=== PATIENT | male | born 1960 | race Caucasian/White ===

== ENCOUNTER 2023-09-30 09:53 | Emergency (ER) | payer MEDICARE ==
[~2023-09-30] VITALS: Ht 172.7 cm; Wt 83.9 kg
[2023-09-30 10:06] VITALS: BP 150/83
[2023-09-30] MEDS ORDERED: CEPH500 PO (11:03)
[2023-09-30] MEDS ORDERED: Bactrim Ds Tab1 EACH PO (11:03)
== END 2023-09-30 11:51 | disposition home or self-care (01) ==
LOC: ER 09:53
DX: L02.412 Cutaneous abscess of left axilla (principal)
CPT/HCPCS: 10060; 99282-25

== ENCOUNTER 2023-11-05 09:01 | Inpatient (IN) | payer MEDICARE ==
[~2023-11-05 09:01] MED LIST: Bactrim Ds Tab1 EACH PO; CEPH500 PO
[2023-11-05] MEDS ORDERED: GABA100 PO (10:05)
[2023-11-05] MEDS ORDERED: DIVALPROEX SOD500 M2 PO (10:05)
[2023-11-05] MEDS ORDERED: NAPROXEN500 MG PO (10:06)
[2023-11-05] MEDS ORDERED: QUET300 PO (10:06)
[2023-11-05 10:38] LABS: BASOPHILS ABSOLUTE AUTO 0.02 K/mm3 (0.00-0.23); BASOPHILS PERCENT AUTO 0 % (0-2); EOSINOPHILS ABSOLUTE AUTO 0.03 K/mm3 (0.00-0.68); EOSINOPHILS PERCENT AUTO 1 % (0-6); Hematocrit 18.5 % (37.0-53.0); IMMATURE GRAN ABSOLUTE AUTO 0.03 K/mm3 (0.00-0.10); IMMATURE GRAN PERCENT AUTO 1 % (0-1); LYMPHOCYTES ABSOLUTE AUTO 0.93 K/mm3 (0.84-5.20); LYMPHOCYTES PERCENT AUTO 18 % (21-46); MONOCYTES ABSOLUTE AUTO 0.44 K/mm3 (0.16-1.47); MONOCYTES PERCENT AUTO 9 % (4-13); Mean Corpuscular HGB 22.8 pg (26.0-34.0); Mean Corpuscular HGB Conc 28.1 g/dL (31.5-36.5); Mean Corpuscular Volume 81 fL (80-100); Mean Platelet Volume 9.5 fL (9.1-12.4); NEUTROPHILS ABSOLUTE AUTO 3.67 K/mm3 (1.96-9.15); NEUTROPHILS PERCENT AUTO 72 % (41-73); NRBC ABSOLUTE 0.02 K/mm3 (0.00-0.02); NRBC Auto 0.4 /100 WBC (0.0-0.2); Platelet Count 292 K/mm3 (150-400); RDW Coefficient Variation 16.3 % (11.7-14.2); RDW Standard Deviation 48.8 fL (35.1-46.3); Red Blood Cell Count 2.28 M/mm3 (4.30-5.90); White Blood Cell Count 5.12 K/mm3 (4.00-11.30)
[2023-11-05 10:50] LABS: Hemoglobin 5.2 g/dL (13.5-17.5)
[2023-11-05 11:03] LABS: Alanine Aminotransfer (ALT/SGP 21 U/L (12-78); Albumin, Blood 3.2 g/dL (3.4-5.0); Albumin/Globulin Ratio 1.1 (0.8-1.8); Alk Phos 51 U/L (50-136); Anion Gap 5 mmol/L (6-16); Aspartate Aminotrans (AST/SGOT 11 U/L (12-37); Bilirubin, Total 0.2 mg/dL (0.1-1.0); Blood Urea Nitrogen 16 mg/dL (8-24); Bun/Creatinine Ratio 16.6 (12.0-20.0); CO2, Blood 23 mmol/L (21-32); Calcium, Blood 8.3 mg/dL (8.5-10.1); Chloride, Blood 117 mmol/L (98-108); Creatinine, Blood 0.96 mg/dL (0.60-1.20); Globulin, Blood 2.8 g/dL (2.2-4.0); Glomerular Filtration Rate 90 (60-); Glucose, Blood 121 mg/dL (70-99); Magnesium, Blood 2.2 mg/dL (1.6-2.4); Potassium, Blood 4.5 mmol/L (3.5-5.5); Sodium, Blood 145 mmol/L (136-145); Valproic Acid 34.3 ug/mL (50.0-100.0)
[2023-11-05 15:36] LABS: IMMATURE RETIC FRACTION 20.6 % (2.3-16.0); RETIC HGB EQUIVALENT 16.1 pg (28.20-36.60); RETICULOCYTE ABSOLUTE 0.0521 M/mm3 (0.0200-0.1100); RETICULOCYTE COUNT PERCENT 2.41 % (0.50-2.50)
[2023-11-05 16:03] LABS: International Normalized Ratio 1.05
[2023-11-05 17:01] LABS: Percent Saturation 1.4 % (20.0-50.0)
[2023-11-05 18:18] VITALS: BP 135/81
[2023-11-05 18:41] VITALS: BP 127/69
--- NOTE | 2023-11-05 18:57 | NUR ---
PATIENT IS A NEW ADMIT. RECIEVING HIS SECOND UNTI OF PRBC NOW. NO C/O DIZZINESS. VSS. ON RA. WILL CONTINUE TO MONITOR
[2023-11-05 18:59] VITALS: BP 133/72
[2023-11-05 20:17] VITALS: BP 130/88
[2023-11-05 21:18] VITALS: BP 128/74
[2023-11-06] VITALS (7 sets, daily range): BP systolic 118–154; BP diastolic 72–83
[2023-11-06 05:31] LABS: BASOPHILS ABSOLUTE AUTO 0.03 K/mm3 (0.00-0.23); BASOPHILS PERCENT AUTO 1 % (0-2); EOSINOPHILS ABSOLUTE AUTO 0.13 K/mm3 (0.00-0.68); EOSINOPHILS PERCENT AUTO 3 % (0-6); Hematocrit 22.5 % (37.0-53.0); Hemoglobin 6.7 g/dL (13.5-17.5); IMMATURE GRAN ABSOLUTE AUTO 0.02 K/mm3 (0.00-0.10); IMMATURE GRAN PERCENT AUTO 0 % (0-1); LYMPHOCYTES ABSOLUTE AUTO 2.03 K/mm3 (0.84-5.20); LYMPHOCYTES PERCENT AUTO 39 % (21-46); MONOCYTES ABSOLUTE AUTO 0.48 K/mm3 (0.16-1.47); MONOCYTES PERCENT AUTO 9 % (4-13); Mean Corpuscular HGB 24.2 pg (26.0-34.0); Mean Corpuscular HGB Conc 29.8 g/dL (31.5-36.5); Mean Corpuscular Volume 81 fL (80-100); NEUTROPHILS ABSOLUTE AUTO 2.56 K/mm3 (1.96-9.15); NEUTROPHILS PERCENT AUTO 49 % (41-73); Platelet Count 269 K/mm3 (150-400); RDW Coefficient Variation 15.9 % (11.7-14.2); RDW Standard Deviation 46.8 fL (35.1-46.3); Red Blood Cell Count 2.77 M/mm3 (4.30-5.90); White Blood Cell Count 5.25 K/mm3 (4.00-11.30)
[2023-11-06 05:43] LABS: Albumin, Blood 2.7 g/dL (3.4-5.0); Bilirubin, Total 1.2 mg/dL (0.1-1.0); Bun/Creatinine Ratio 10.5 (12.0-20.0); Creatinine, Blood 1.05 mg/dL (0.60-1.20); Globulin, Blood 2.6 g/dL (2.2-4.0); Magnesium, Blood 2.2 mg/dL (1.6-2.4); Potassium, Blood 4.3 mmol/L (3.5-5.5); Total Protein, Blood 5.3 g/dL (6.4-8.2)
--- NOTE | 2023-11-06 07:13 | NUR ---
Shift Summary Pt rcvd 2nd unit of blood without any issues. This AM pt states his urine was pink. No BM this shift. Pt rcving IV Protonix, on clear liquid diet. No c/o of dizzyness, sob or nausea this shift.
[2023-11-06 13:22] LABS: BASOPHILS ABSOLUTE AUTO 0.04 K/mm3 (0.00-0.23); BASOPHILS PERCENT AUTO 1 % (0-2); EOSINOPHILS ABSOLUTE AUTO 0.08 K/mm3 (0.00-0.68); EOSINOPHILS PERCENT AUTO 2 % (0-6); Hematocrit 25.5 % (37.0-53.0); Hemoglobin 7.8 g/dL (13.5-17.5); IMMATURE GRAN ABSOLUTE AUTO 0.02 K/mm3 (0.00-0.10); IMMATURE GRAN PERCENT AUTO 0 % (0-1); LYMPHOCYTES ABSOLUTE AUTO 1.59 K/mm3 (0.84-5.20); LYMPHOCYTES PERCENT AUTO 34 % (21-46); MONOCYTES ABSOLUTE AUTO 0.38 K/mm3 (0.16-1.47); MONOCYTES PERCENT AUTO 8 % (4-13); Mean Corpuscular HGB Conc 30.6 g/dL (31.5-36.5); Mean Corpuscular Volume 82 fL (80-100); Mean Platelet Volume 9.6 fL (9.1-12.4); NEUTROPHILS ABSOLUTE AUTO 2.54 K/mm3 (1.96-9.15); NEUTROPHILS PERCENT AUTO 55 % (41-73); NRBC ABSOLUTE 0.02 K/mm3 (0.00-0.02); NRBC Auto 0.4 /100 WBC (0.0-0.2); Platelet Count 248 K/mm3 (150-400); RDW Coefficient Variation 15.9 % (11.7-14.2); RDW Standard Deviation 46.6 fL (35.1-46.3); Red Blood Cell Count 3.12 M/mm3 (4.30-5.90); White Blood Cell Count 4.65 K/mm3 (4.00-11.30)
--- NOTE | 2023-11-06 18:14 | NUR ---
PATIENT IS ALERT AND ORIENTED AND COOPERATIVE WITH CARE.1 UNIT OF PRBC WAS TRANSFUSED THIS SHIFT, INCREASING HIS HGB TO 7.8L. PLAN IS TO TRANSFER TO ANOTHER HOSPITAL WITH , DR. MACKEY IS WORKING ON THIS. WILL CONTINUE TO MONITOR
[2023-11-07 05:45] VITALS: BP 134/80
--- NOTE | 2023-11-07 07:40 | NUR ---
Shift Summary Urine was normal color this shift, pt AOX4 and independent in the room, no acute changes. Pt slept well t/o the night. No BM tonight.
[2023-11-07 07:52] VITALS: BP 117/77
[2023-11-07 15:44] VITALS: BP 141/78
--- NOTE | 2023-11-07 18:12 | NUR ---
SHIFT SUMMARY PT AOX4, INDEPENDENT IN THE ROOM. HE C/O CONSTIPATION THIS AM, THE PROVIDER CONSULTED AND STARTED HIM ON MIRALAX. HE HAD ONE MODERATE BM THIS AFTERNOON BUT STILL STATES SOME GAS PRESENT. OTHER THAN THAT, NO OTHER COMPLAINTS. HE IS COOPERATIVE AND MAKES HIS NEEDS KNOWN. WILL RECHECK HEMOGLOBIN IN THE AM TO DETERMINE POSSIBLE DISCHARGE OR NOT. CALL LIGHT WITHIN REACH, BED IN THE LOWEST POSITION. WILL REPORT TO ONCOMING NURSE.
[2023-11-07 20:53] VITALS: BP 130/81
--- NOTE | 2023-11-08 03:56 | NUR ---
SHIFT SUMMARY NO ACUTE CHANGES TO REPORT OVERNIGHT, PT HAS RESTED T/O THE NIGHT. NO S/S OF BLEEDING. VITALS ARE STABLE. PT HAS BEEN AMBULATING INDEPENDENTLY IN HIS ROOM. DENIES PAIN. PLAN OF CARE REMAINS UNCHANGED. BED IN LOWEST POSITION, CALL LIGHT WITHIN REACH.
[2023-11-08 04:35] VITALS: BP 122/65
[2023-11-08 05:14] LABS: BASOPHILS ABSOLUTE AUTO 0.04 K/mm3 (0.00-0.23); BASOPHILS PERCENT AUTO 1 % (0-2); EOSINOPHILS ABSOLUTE AUTO 0.17 K/mm3 (0.00-0.68); EOSINOPHILS PERCENT AUTO 3 % (0-6); Hematocrit 28.4 % (37.0-53.0); Hemoglobin 8.6 g/dL (13.5-17.5); IMMATURE GRAN ABSOLUTE AUTO 0.02 K/mm3 (0.00-0.10); IMMATURE GRAN PERCENT AUTO 0 % (0-1); LYMPHOCYTES ABSOLUTE AUTO 2.11 K/mm3 (0.84-5.20); LYMPHOCYTES PERCENT AUTO 42 % (21-46); MONOCYTES ABSOLUTE AUTO 0.58 K/mm3 (0.16-1.47); MONOCYTES PERCENT AUTO 12 % (4-13); Mean Corpuscular HGB 25.1 pg (26.0-34.0); Mean Corpuscular HGB Conc 30.3 g/dL (31.5-36.5); Mean Corpuscular Volume 83 fL (80-100); Mean Platelet Volume 9.8 fL (9.1-12.4); NEUTROPHILS ABSOLUTE AUTO 2.08 K/mm3 (1.96-9.15); NEUTROPHILS PERCENT AUTO 42 % (41-73); Platelet Count 287 K/mm3 (150-400); RDW Coefficient Variation 16.2 % (11.7-14.2); RDW Standard Deviation 48.5 fL (35.1-46.3); Red Blood Cell Count 3.42 M/mm3 (4.30-5.90)
[2023-11-08 05:50] LABS: Bun/Creatinine Ratio 8.9 (12.0-20.0); Calcium, Blood 8.3 mg/dL (8.5-10.1); Creatinine, Blood 1.12 mg/dL (0.60-1.20); Percent Saturation 3.5 % (20.0-50.0)
[2023-11-08 08:07] VITALS: BP 139/77
[2023-11-08] MEDS ORDERED: MIRALAX17 GM PO (12:13)
[2023-11-08] MEDS ORDERED: FERROUS GLUCON324 M2 PO (12:15)
[2023-11-08] MEDS ORDERED: PANT20 PO (12:17)
--- NOTE | 2023-11-08 13:19 | NUR ---
DISCHARGE NOTE PT DISCHARGED TO HOME, ORGANIZED HIS OWN RIDE VIA TAXI. IV REMOVED. DISCHARGE INFORMATION AND EDUCATION PROVIDED. MEDICATIONS FAXED TO THE PHARMACY OF HIS CHOICE. PERSONAL BELONGINGS RETURNED.
== END 2023-11-08 13:16 | disposition home or self-care (01) | DRG 812 ==
LOC: ER 09:01 → MEDS 09:02
PROVIDERS: Emergency Medicine; Student in an Organized Health Care Education/Training Program; ADMIT Internal Medicine
PROC: 30233N1 Transfusion of Nonautologous Red Blood Cells into Peripheral Vein, Percutaneous Approach (ICD-10-PCS; principal; 2023-11-05)
DX: D62 Acute posthemorrhagic anemia (principal); K92.2 Gastrointestinal hemorrhage, unspecified; T39.395A Adverse effect of other nonsteroidal anti-inflammatory drugs [NSAID], initial encounter; Z66 Do not resuscitate; D50.9 Iron deficiency anemia, unspecified; F31.9 Bipolar disorder, unspecified; G62.9 Polyneuropathy, unspecified; G89.29 Other chronic pain; M54.9 Dorsalgia, unspecified
CPT/HCPCS: 36415; 36430; 80048; 80053; 80164; 82272; 82607; 82728; 82746; 83540; 83550; 83615; 83735; 83880; 84443; 84484; 85025; 85045; 85610; 86850; 86900; 86901; 86923; 93005; 93010; 96360; 96361; 96374; 96376; 99285-25; A9270; C9113; G0378; J2916; J7030; J7040; P9016